=== PATIENT | male | born 1935 | race Caucasian/White ===

== ENCOUNTER → 2017-10-01 16:22 | Outpatient (CLI) | payer MEDICARE, OTHER, SELFPAY | PROVIDERS: Visit Provider Otolaryngology Otolaryngology/Facial Plastic Surgery | DX: J02.9 Acute pharyngitis, unspecified (principal); J32.9 Chronic sinusitis, unspecified | CPT/HCPCS: 87070; 87077 ==

== ENCOUNTER 2018-02-19 06:05 | Inpatient (IN) | payer MEDICARE, OTHER, SELFPAY ==
[2018-02-19] VITALS (20 sets, daily range): BP systolic 105–169; BP diastolic 53–83; PULSE 76–93; RESP 14–32; TEMP 36.4–37.1; O2SAT 83–100; BMI 28.1
--- NOTE | 2018-02-19 06:34 | CT_ITS ---
STUDY: CT ABDOMEN AND PELVIS WITHOUT CONTRAST REASON FOR EXAM: Male, 82 years old. Constipation, abdominal pain RADIATION DOSAGE (If Supplied By Facility): CTDIvol = ( 8.45 ) mGy, DLP = ( 479.49 ) mGycm TECHNIQUE: Transaxial 2.5 mm images were obtained from the dome of the diaphragm to the symphysis pubis without oral contrast, and without intravenous contrast. Sagittal and coronal images were reconstructed. This examination is limited for the evaluation of gastrointestinal, solid organs and vascular structures due to the lack of intravenous and oral contrast. Individualized dose optimization techniques were used for this CT. COMPARISON: None. FINDINGS: Interstitial lung disease with hyperinflation-bulla formation, with additional atelectatic changes and probable scarring. There is coronary artery calcification. Esophageal wall is probably thickened. Esophageal diameter of 1.5 cm. Normal liver. There is trace perihepatic fluid and stranding. Significant distention of the gallbladder containing at least 3 gallbladder calculi one of which appears to be in the gallbladder neck/cystic duct measuring 0.8 cm. Gallbladder wall is indistinct, appears thickened, there is pericholecystic stranding and probable fluid. Small pericholecystic lymph node 0.7 cm. The common bile duct is decompressed without choledocholithiasis. There is no intrahepatic biliary ductal dilatation. Normal spleen. There is atrophy of the pancreas. Small duodenal diverticulum. Normal bilateral adrenal glands. Moderate left greater than right renal involution with cortical thinning, perirenal stranding, focal renal cortical thinning likely scarring, left parapelvic cyst. There is no obstructive uropathy, obstructive renal or ureteral calculi. Left retroaortic renal vein is a vascular variant. Normal visualized stomach. Normal small intestine. Moderate amount of retained fecal material in the ascending colon without obstruction. Otherwise normal colon. The appendix is visualized and appears normal. There is atherosclerosis of the abdominal aorta, greater branches and pelvic arteries without aneurysm or leak. Normal inferior vena cava. Normal retroperitoneum. Normal urinary bladder. Normal visualized prostate gland. There is a penile pump in the right groin through the right inguinal canal with an incompletely imaged penile implant. There is trace pelvic fluid. Normal abdominal wall. There are diffuse degenerative changes of the visualized lumbar spine. Grade 2 anterolisthesis L5 on S1. CT/Abdomen/Pelvis without Cont IMPRESSION: Acute cholecystitis with cystic duct obstruction. Pericholecystic inflammatory changes as above. Arteriosclerosis. Renal involution and scarring. Arteriosclerosis. Moderate amount of retained fecal material in the ascending colon, however no significant retained fecal material otherwise noted. Indeterminate esophageal wall, possible thickening. This can be further assessed if needed with endoscopy. Electronically Signed: Lisa Christy MD at 7:15 EST , Service support ,
--- NOTE | 2018-02-19 06:40 | RAD_ITS ---
STUDY: X-RAY CHEST REASON FOR EXAM: Male, 82 years old. Shortness of breath for 2 days. TECHNIQUE: Single AP portable view of the chest. COMPARISON: CT of the chest dated January 17, 2016. FINDINGS: The lungs are underexpanded with crowding of the bronchovascular markings and obscuration of the lung bases. There is mild elevation of the right hemidiaphragm. Appears to be right basilar and left basilar subsegmental atelectasis. There is no demonstrated pleural abnormality. Normal size heart. Normal mediastinum and tatiana. Normal visualized pulmonary arteries. Normal visualized aortic arch and descending thoracic aorta. Normal visualized thoracic spine. Patient has had previous right-sided shoulder surgery where there are humeral bone anchors. There is no demonstrated abnormality of the visualized soft tissue structures of the upper abdomen. RAD/Chest 1 View (Portable) IMPRESSION: Expiratory chest radiograph with bilateral basilar subsegmental atelectasis. Electronically Signed: Jennifer Salas MD at 7:23 EST , Service support ,
--- NOTE | 2018-02-19 06:40 | EKG12_ITS ---
Test Reason : AB PAIN Blood Pressure : / mmHG Vent. Rate : 081 BPM Atrial Rate : 081 BPM P-R Int : 160 ms QRS Dur : 092 ms QT Int : 372 ms P-R-T Axes : 065 029 021 degrees QTc Int : 432 ms Normal sinus rhythm Normal ECG Confirmed by BRENDA STEVENSON, SALONI ([id number]), index editor RAY MULTANI ([id number]) on 02/21/2018 2:35:45 PM Referred By: TG Confirmed By:SALONI GUTIERREZ MD
[2018-02-19] MEDS: 0.9% Normal Saline 1,000 ML 1000 ML IV (06:42)
[2018-02-19] MEDS: Ondansetron 4 MG/2 ML Vial IV (06:42)
[2018-02-19 06:44] LABS: Absolute Lymphocyte Count 0.53 X10^3/ul (0.83-4.51); Absolute Neutrophil Count 11.5 X10^3/uL (2.0-7.7); Basophil# 0.01 X10^3/uL; Basophil% 0.1 % (0-1); Differential Indicated SCAN CRITERIA MET; Hematocrit 45.7 % (40-54); Hemoglobin 16.2 g/dl (13.0-16.5); Lymphocyte # 0.53 X10^3/ul (4.0); Mean Corp Hgb Conc 35.4 g/gl (32-36); Mean Corpuscular Hgb 31.6 pg (27.0-32.0); Mean Corpuscular Volume 89.3 fL (80-94); Mean Platelet Vol. 10.5 fl (6.2-12.0); Monocyte# 1.26 X10^3/uL; Monocyte% 9.5 % (0-10); Neutrophil # 11.51 X10^3/uL (2.7-7.7); Neutrophil % 86.2 % (47-70); POSITIVE COUNT NO; POSITIVE DIFFERENTIAL YES; POSITIVE MORPHOLOGY NO; Platelet Count 207 K/mm3 (150-450); RBC Distribution Width CV 12.6 % (11.6-14.6); RBC Distribution Width SD 40.6 fl (35.1-43.9); Red Blood Count 5.12 M/mm3 (4.6-6.2); White Blood Count 13.3 K/mm3 (4.4-11.0)
[2018-02-19 06:55] LABS: ALB/GLOB Ratio 1.1 RATIO (0.9-2.4); AST(SGOT) 19 U/L (15-37); Alanine Aminotransfer ALT/SGPT 22 U/L (16-61); Albumin, Serum 3.7 g/dL (3.2-5.0); Alkaline Phosphatase 62 U/L (45-117); Anion Gap 11 (5-15); BUN 15 mg/dL (7-18); BUN/Creat Ratio 13.2 RATIO (10-20); Calcium,Total 8.9 mg/dL (8.5-10.1); Chloride 95 mmol/L (98-107); Creatinine, Serum 1.14 mg/dL (0.70-1.30); EST Glomerular Filtration Rate 66 mL/min (>60); Est Glom Filt Rate - Afr Amer 79 mL/min (>60); Estimated Creatinine Clearance 48.32 ml/min; Globulin 3.5 g/dL (2.2-4.2); Glucose 181 mg/dL (74-106); Lipase 53 U/L (73-393); Potassium 4.1 mmol/L (3.5-5.1); Protein, Total 7.2 g/dL (6.4-8.2); Sodium Level 134 mmol/L (136-145)
--- NOTE | 2018-02-19 07:00 | ED.VISSUMM ---
- ER Visit Summary Date of Service: 02/19/18 Chief Complaint: I have a bowel blockage. History of Present Illness: The patient is a 82 M who presents with abdominal pain. It initially began yesterday. It is diffuse and nonfocal. It is only mild currently but is moderate at its worst intensity. He complains of feeling distended. He has had nausea and vomiting and is been unable to tolerate anything by mouth. He states he cannot even tolerate liquids. He has had no bowel movement in 3 days and is no longer having any flatus. No prior history of small bowel obstruction. History of abdominal surgeries. Patient reports normal colonoscopy 2 years ago. Physical Examination: Afebrile vitals notable for pulse ox of 88% on room air otherwise normal No distress Heart regular rate and rhythm Lungs are clear Abdomen soft with mild nonfocal tenderness, he is distended, normal bowel sounds Alert Test Results: Laboratory studies and CT of the abdomen and pelvis have been ordered and are currently pending. Emergency Department Course and Treatment: Patient did not need any analgesics here as he is comfortable unless he moves. He was given IV fluids and antiemetics. He was signed out to the oncoming physician for reevaluation and follow-up on results and final disposition Treatment Plan: [] Disposition: [] Impression: [] This note was generated with [employer] dictation software. It may contain incorrect words, spelling, and punctuation that were not noted in review of the chart prior to signing ED Disposition - Plan for ED Patient: Chief Complaint: Abd Pain Referrals: Xavier Rodriguez MD [Primary Care Provider] -
--- NOTE | 2018-02-19 07:44 | ED.RN ---
PT STATES HE CHECKED HIS BGL 2 DAYS AGO AND DOES NOT REMEMBER THE RESULT.
--- NOTE | 2018-02-19 07:53 | HP.PCM_ITS ---
Problem List (1) Cholecystitis, acute with cholelithiasis Status: Acute Qualifiers: Cholelithiasis location: gallbladder Biliary obstruction: without biliary obstruction Qualified Code(s): K80.00 - Calculus of gallbladder with acute cholecystitis without obstruction History of Present Illness Date of Admission: 02/19/18 The patient is a 82 year old M presented to the emergency room overnight. I was contacted early this morning. The patient has been ill for a day and a half. He developed upper abdominal pain. That occurred on Saturday evening. All day yesterday he was in pain with nausea and vomiting. He did not notify his primary care physician. He presented to the [facility] emergency room in the middle the night. Evaluation demonstrated white cell count of 13.3 with a hemoglobin 16.2 and hematocrit 45.7 and platelet count 207,000. 86% neutrophils. BUN is 15 and creatinine 1.14. His liver panel was normal. Lipase is 53. Abdominal pelvic CT scan was obtained showing diffuse thickening of the gallbladder wall gallstones pericholecystic fluid fecal retention in the ascending colon all consistent with acute cholecystitis secondary to cholelithiasis. Common bile duct felt to be normal. The patient claims that he is been having sweats and chills. He has been intolerant of any type of liquid. He has never had a pain like this before. Was a previous long-term cigarette smoker. At least a pack per day. He quit smoking 30 years ago. His presentation to the emergency room he is afebrile. Blood pressure is 144/68. BMI is 28. Past Medical History Past Medical History (Chronic Problems): Chronic Problems Benign prostatic hypertrophy (Chronic) Hypertension (Chronic) Type 2 diabetes mellitus (Chronic) Allergies erythromycin base Allergy (Verified 02/19/18 06:11) Other Home Medications: Ambulatory Orders Medication Instructions Recorded Cholecalciferol (VIT D3) [Vitamin 1,000 unit PO DAILY 01/17/16 D3] Finasteride 5 mg PO DAILY 01/17/16 Gabapentin 300 mg PO QHS 01/17/16 Glimepiride [Amaryl] 1 tab PO DAILY 01/17/16 Lisinopril 5 mg PO DAILY 01/17/16 Multivitamin [Daily Multiple 1 each PO DAILY 01/17/16 Vitamin] Omeprazole 20 mg PO DAILY 01/17/16 Pravastatin [Pravachol] 80 mg PO QHS 01/17/16 Ubidecarenone/Vit E Acetate [Co 1 each PO DAILY 01/17/16 Q-10 100 mg Softgel] Surgical History: - - tonsils out,peronie disease surgery. Right rotator cuff surgery. Excision of subcutaneous lipomas Smoking Status: Former smoker - *Family History Paternal History Items: - - lung disease age 66 Sibling History Items: - - prostate cancer Review of Systems Constitutional: Reports: Anorexia, Chills, Fever, Night Sweats Eyes: Denies: Blurred vision HEENT: Denies: Difficulty Swallowing Cardiovascular: Denies: Chest Pain, Claudication, Chest Pressure Respiratory: Denies: Cough Gastrointestinal: Reports: Abdominal Pain, Nausea, Vomiting Genitourinary: Denies: Dysuria Skin: Reports: Dryness Psychiatric: Denies: Anxiety Endocrine: Denies: Change in Body Habitus VTE Information - Inpt Only VTE Present on Admission: No Patient Problems: Active and Suspected Problems Cholecystitis, acute with cholelithiasis (Acute) - Physical Exam General: Alert, Oriented x3, Cooperative HEENT: Atraumatic Oral: Moist Mucosa Neck: Supple, Negative Carotid Bruits Lungs: Clear to auscultation Cardiovascular: Regular rate, Regular Rhythm Abdomen: Bowel Sounds Not Present, Distended, Tender Extremities: No Calf Tenderness Skin: No rashes Lymphatic: No Cervical, Supraclavicular, or Inguinal Adenopathy Neurological: Cranial nerves II-XII grossly intact Psych/Mental Status: Normal Affect Vital Signs Temp Pulse Resp BP Pulse Ox 97.6 F L 93 16 144/68 H 92 02/19/18 07:32 02/19/18 07:32 02/19/18 07:32 02/19/18 07:32 02/19/18 07:32 Oxygen Delivery Method Ambu-Bag Weight: 179 lb 10.828 oz Body Mass Index (BMI) 28.1 Laboratory Tests Past 24 Hrs 02/19/18 02/19/18 06:21 06:21 WBC 13.3 H RBC 5.12 Hgb 16.2 Hct 45.7 MCV 89.3 MCH 31.6 MCHC 35.4 RDW 12.6 RDW Differential 40.6 Plt Count 207 MPV 10.5 Immature Gran % (Auto) 0.200 Neut % (Auto) 86.2 H Lymph % (Auto) 4.0 L Crittenden % (Auto) 9.5 Eos % (Auto) 0.0 Baso % (Auto) 0.1 Absolute Neuts (auto) 11.5 H Absolute Lymphs (auto) 0.53 L Total Counted Not Reportable Sodium 134 L Potassium 4.1 Chloride 95 L Carbon Dioxide 28.0 Anion Gap 11 BUN 15 Creatinine 1.14 Estim Creat Clear Calc 48.32 Est GFR (MDRD) Af Amer 79 Est GFR (MDRD) Non-Af 66 BUN/Creatinine Ratio 13.2 Glucose 181 H Calcium 8.9 Total Bilirubin 1.00 AST 19 ALT 22 Alkaline Phosphatase 62 Total Protein 7.2 Albumin 3.7 Globulin 3.5 Albumin/Globulin Ratio 1.1 Lipase 53 L Assessment/Plan All Active Problems Cholecystitis, acute with cholelithiasis (Acute) Dehydration (Acute) Syncope (Acute) Findings are consistent with acute cholecystitis cholelithiasis. Clinically he already has an ileus related to this. I am recommending to him laparoscopic cholecystectomy selective cholangiography and in detail I discussed the technique, benefits, risks, alternatives. I believe proceeding directly would be in his best interest. We will provide IV hydration. We will start therapeutic IV antibiotics. We will try to add him on to the surgery schedule in a timely fashion. He is aware that there are no guarantees of success. He has had an opportunity to ask and have questions answered. He requests that we proceed with definitive management. Irwin Potts M.D., F.A.C.S.
--- NOTE | 2018-02-19 07:57 | DCINST_ITS ---
Discharge Diet: Light diet - advance as tolerated - if you have questions about your diet instructions, please talk to you doctor. Discharge Activity: May Not Drive - for 1 week or while taking narcotic pain medicine. May shower in (days): 1 Lifting Restrictions: 10 pounds Call your doctor if your incision/area has: Continuous Slow Oozing, Sudden Increased Bleeding, Increased Pain/ Swelling, Increased Redness, Foul Smelling Discharge Call your doctor if you observe: Fever of 101 or Higher Suture Line Care: Avoid Pulling/Pushing, Avoid Pinching/Bending Additional Dressing/Incision Instructions:: Change or remove dressing in 4 days. Leave steri-strips in place for 1 week. Allergies/Adverse Reactions: Allergies erythromycin base Allergy (Verified 02/19/18 06:11) Other Medications to take at Discharge Cholecalciferol (VIT D3) [Vitamin D3] 1,000 unit PO DAILY 01/17/16 Finasteride 5 mg PO DAILY 01/17/16 Gabapentin 300 mg PO QHS 01/17/16 Glimepiride [Amaryl] 1 tab PO DAILY 01/17/16 Lisinopril 5 mg PO DAILY 01/17/16 Multivitamin [Daily Multiple Vitamin] 1 each PO DAILY 01/17/16 Omeprazole 20 mg PO DAILY 01/17/16 Pravastatin [Pravachol] 80 mg PO QHS 01/17/16 Ubidecarenone/Vit E Acetate [Co Q-10 100 mg Softgel] 1 each PO DAILY 01/17/16 Primary Care Physician: Xavier Rodriguez MD [Primary Care Provider] - Test Results: Test results from this visit will be discussed in further detail at your follow- up appointment, if applicable. Please Follow Up With: Irwin Potts MD - [phone] When: Call to make an appointment to be seen in about 10 days.
--- NOTE | 2018-02-19 08:10 | ED.RN ---
OR TECH IN ED.
--- NOTE | 2018-02-19 09:00 | RAD_ITS ---
STUDY: INTRAOPERATIVE CHOLANGIOGRAM. REASON FOR EXAM: Male, 82 years old. Laparoscopic cholecystectomy. FLUOROSCOPY TIME (if supplied): (50.6 seconds.) minutes/seconds TECHNIQUE: Intraoperative localizing was performed by the surgeon. A cine loop was submitted. COMPARISON: None. FINDINGS: The common bile duct is not dilated. No intraluminal filling defect is seen. There is free flow of contrast into the duodenum. RAD/Cholangiogram/ O R,Initial IMPRESSION: Unremarkable intraoperative cholangiogram. Electronically Signed: Abraham Turner MD at 14:56 EST Tel [phone], Service support ,
--- NOTE | 2018-02-19 09:15 | GALL_PTH ---
PATIENT: ЕКАТЕРИНА CASTELLON LOC: [facility]3 U#:[id number] AGE/SX: 82/M ROOM: WA315 RE02/20/[address]: Dr. Irwin Potts MD : [id number] BED: 1 DIS: 02/21/2018 SPEC #: [id number] RECD: 02/19/18 15:27 STATUS: FALLON HERNANDEZConrado #: [id number] TRAVIS: 02/19/18 09:[address]: Irwin Potts DEPT: SURGICAL PATHOLOGY RECD BY: Jeremias Shin ENTERED: 02/20/18 08:11 SP TYPE: RANDALL CEE DR: Dr. 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 SJ:bisi 02/21/18 MICROSCOPIC DESCRIPTION Slides are reviewed. GROSS DESCRIPTION Received is one container labeled with the patient's name and designated gallbladder. The specimen consists of a gallbladder measuring 12 cm in length and up to 5 cm in diameter. The serosa is congested and hemorrhagic. The external surface is pink-shah, smooth and glistening for the most part. Focally it is granular, hemorrhagic and contains cautery artifact. The gallbladder contains hemorrhagic fluid and multiple blood clots and black, irregular to multifaceted stones measuring 0.6 to 1.3 cm in greatest dimension and in aggregate 2 x 1 x 1 cm. The mucosa is congested, hemorrhagic and ulcerated. The gallbladder wall measures up to 0.5 cm in thickness. Sections of the gallbladder wall reveal focally congested and hemorrhagic cut surfaces. Company Controller sections from the gallbladder and the cystic duct are submitted in one cassette. / AARON:bisi 02/20/18 TC:2 CPT: 40666
--- NOTE | 2018-02-19 10:50 | RAD_ITS ---
STUDY: INTRAOPERATIVE CHOLANGIOGRAM. REASON FOR EXAM: Male, 82 years old. Laparoscopic cholecystectomy. FLUOROSCOPY TIME (if supplied): (0:33) minutes/seconds TECHNIQUE: A repeat intraoperative cholangiogram was performed following injection of glucagon. COMPARISON: Comparison is made with prior examination done earlier in the day. FINDINGS: The common bile duct is unremarkable. No intraluminal filling defect is seen. There is free flow of contrast into the duodenum. RAD/Cholangiogram O.R./Subsequent IMPRESSION: Unremarkable intraoperative cholangiogram. Electronically Signed: Abraham Turner MD at 14:58 EST Tel [phone], Service support ,
[2018-02-19] MEDS: Bupivacaine Mpf 0.5% 30 ML VIAL (11:20)
--- NOTE | 2018-02-19 11:21 | PCM.OPRPT ---
Problem List (1) Cholecystitis, acute with cholelithiasis Status: Acute Qualifiers: Cholelithiasis location: gallbladder Biliary obstruction: without biliary obstruction Qualified Code(s): K80.00 - Calculus of gallbladder with acute cholecystitis without obstruction Report of Operation Date of Procedure: 02/19/18 Pre-Operative Diagnosis: Acute cholecystitis cholelithiasis with ileus Post-Operative Diagnosis: Same Surgery/Procedure Performed:: Laparoscopic cholecystectomy with intraoperative cholangiography Description of Surgical Findings:: Timeout and informed consent was obtained. 82-year-old gentleman was taken to the operating room with a diagnosis of acute cholecystitis cholelithiasis. He was therapeutic treated with Zosyn in the emergency room. He already had an established ileus. He underwent general endotracheal intubation anesthesia. The abdomen sterilely prepped and draped. 0.5% Marcaine was used as a local anesthetic. Throughout the procedure total 30 cc was used. Skin sites were pre-anesthetized. A vertical infraumbilical incision was created holding sutures of 0 Vicryl placed there is no discharge is seen to drop test performed the abdomen was insufflated with CO2 to a pressure of 10 mmHg pressure. Told me trocar inserted. Timeout scope inserted. The superficial structures inspected no abnormalities however the omentum and transverse colon was densely adherent overlying a markedly distended gallbladder. Final trochars in place the epigastric mid abdomen right upper quadrant. Slightly under the case and additional family trocar was placed in the left upper quadrant. The omentum was bluntly dissected free from the gallbladder. Gallbladder was markedly distended and pregangrenous. The trocar was used to aspirate and decompress the gallbladder. There were marked a number of omental adhesions to the gallbladder. I had added additional left upper quadrant port and under place a liver retractor in order to hold the distended transverse colon down. Aqua dissection blunt dissection was used to identify the infundibular area of the gallbladder however finding a critical view was not possible. After tedious adequate resection there was significant amount of blood loss at least 200 cc I elected to do a dome down approach. I was able to use a hook cautery and released the abdomen the gallbladder then carefully dissected free from the liver bed. Hemostasis was achieved with electrocautery throughout vomiting now achieved this I was able to dissect the gallbladder down to the portal area was able to identify the proper hepatic duct, bile duct. Eyes able to see the anterior and posterior cystic artery these were secured with hemoclips prior to transecting them. I was left with only the infundibular the gallbladder and the cystic duct. The lock clip was placed and incision made in cystic duct clench Loco catheter inserted and fluoroscopically controlled plane scans were obtained. This suggested the possibility of a distal common bile duct defect stone and so the patient received a milligram of glucagon I flushed with saline and then I repeated the echo angiogram and there was appear to be free flow into the small bowel. I remove the clench Loco in 2 extra-large hemoclips were placed on the cystic duct area. These nicely across that area it was intact. The gallbladder was placed in a retrieval bag. The liver bed was inspected further electrocautery was used for hemostasis and then 2 pieces of fibrillar were placed in the liver bed to further assist with hemostasis. A 15 round EUGENE drain was shortened the length exited through the right upper quadrant port site and placed to the liver bed area it was secured to skin with 3-0 nylon. It was now the gallbladder was exited the umbilicus because of the marked enlargement the fascia and skin had to be enlarged. It was then safely removed trochars were removed the abdomen was allowed to deflate his CO2. The fascia at the umbilicus approximated with a [id number] of 0 Vicryl in a running 0 Vicryl. Good fascial closure was achieved. Skin edges approximated up to 4 Monocryl subdermal stitches. Steri-Strips Telfa and OpSite dressings applied. Sponge and instrument and needle counts were reported the surgeon were correct. Specimens gallbladder. Drains #15 EUGENE. Blood loss 400 cc. Irwin Potts M.D., F.A.C.S. Type of Anesthesia:: General Anesthesiologist: [place]ano Mendieta
--- NOTE | 2018-02-19 12:00 | RAD_ITS ---
STUDY: X-RAY CHEST REASON FOR EXAM: Male, 82 years old. Postoperative chest pain TECHNIQUE: Single AP portable view of the chest. COMPARISON: 02/19/2018 FINDINGS: EKG leads overlie the chest. Lungs are underexpanded, with bibasilar atelectasis. There is no demonstrated pleural abnormality. Normal size heart. Normal mediastinum and tatiana. Normal visualized pulmonary arteries. Normal visualized aortic arch and descending thoracic aorta. Normal visualized thoracic spine. Normal visualized ribs, clavicles, and shoulders. There is no demonstrated abnormality of the visualized soft tissue structures of the upper abdomen. RAD/Chest 1 View (Portable) IMPRESSION: Underexpanded lungs with bibasilar atelectasis. Electronically Signed: Kevin Tucker MD at 12:44 EST , Service support ,
[2018-02-19 12:15] LABS: Bedside Glucose 213 mg/dL (70-110)
--- NOTE | 2018-02-19 12:21 | NURSING ---
DR Dannie HSIEH PALPATED PT ABDOMEN, VIEWED PT VS. THIS NURSE EXPRESSED CONCERN RE: INCREASE IN ABDOMINAL FIRMNESS AND DISTENTION SINCE PT ARRIVAL TO PACU, ALONG WITH DYSPNEA AND C/O CHEST PRESSURE PER PT. WILL CONTINUE TO MONITOR.
--- NOTE | 2018-02-19 12:37 | EKG12_ITS ---
Test Reason : CP Blood Pressure : / mmHG Vent. Rate : 083 BPM Atrial Rate : 083 BPM P-R Int : 154 ms QRS Dur : 090 ms QT Int : 376 ms P-R-T Axes : 046 000 008 degrees QTc Int : 441 ms Normal sinus rhythm Normal ECG When compared with ECG of 19-FEB-2018 06:43, MANUAL COMPARISON REQUIRED, DATA IS UNCONFIRMED Confirmed by BRENDA STEVENSON, SALONI ([id number]), order editor RAY MULTANI ([id number]) on 02/21/2018 3:19:04 PM Referred By: МАРИЯ Confirmed By:SALONI GUTIERREZ MD
--- NOTE | 2018-02-19 12:38 | NURSING ---
DR Dannie HSIEH EXAMINED PT ABD, PT CALMER NOW, VS STABLE, C/O PAIN, BUT STATES PAIN MORE TOLERABLE.
[2018-02-19 12:40] LABS: Absolute Lymphocyte Count 0.77 X10^3/ul (0.83-4.51); Absolute Neutrophil Count 9.5 X10^3/uL (2.0-7.7); Basophil# 0.01 X10^3/uL; Basophil% 0.1 % (0-1); Eosinophil# 0.01 X10^3/uL; Eosinophils% 0.1 % (0-5); Hematocrit 48.9 % (40-54); Hemoglobin 16.7 g/dl (13.0-16.5); Lymphocyte # 0.77 X10^3/ul (4.0); Mean Corp Hgb Conc 34.2 g/gl (32-36); Mean Corpuscular Hgb 31.4 pg (27.0-32.0); Mean Corpuscular Volume 91.9 fL (80-94); Mean Platelet Vol. 10.7 fl (6.2-12.0); Monocyte# 0.69 X10^3/uL; Monocyte% 6.3 % (0-10); Neutrophil # 9.49 X10^3/uL (2.7-7.7); Neutrophil % 86.3 % (47-70); Platelet Count 197 K/mm3 (150-450); RBC Distribution Width CV 12.8 % (11.6-14.6); RBC Distribution Width SD 42.2 fl (35.1-43.9); Red Blood Count 5.32 M/mm3 (4.6-6.2)
[2018-02-19 12:41] LABS: POSITIVE COUNT NO; POSITIVE DIFFERENTIAL NO; POSITIVE MORPHOLOGY NO
[2018-02-19 13:01] LABS: Allen Test POS; Base Excess -1 mmol/L (-2 to +2); Bicarbonate 24.7 mmol/L (22-26); Blood Gas Specimen Type ART; O2 Delivery Device Nasal Can; PO2 56 mmHG (75-100); SITE R Radial; SO2 86 % (95-99); Time Given 1253; Total Carbon Dioxide 26 mmol/L; pH 7.33 (7.35-7.45)
[2018-02-19 13:05] LABS: BUN 15 mg/dL (7-18); Creatinine, Serum 1.08 mg/dL (0.70-1.30); Glucose 212 mg/dL (74-106)
[2018-02-19 13:06] LABS: AST(SGOT) 58 U/L (15-37); Alanine Aminotransfer ALT/SGPT 48 U/L (16-61); Albumin, Serum 3.5 g/dL (3.2-5.0); Alkaline Phosphatase 62 U/L (45-117); Anion Gap 8 (5-15); BUN/Creat Ratio 13.9 RATIO (10-20); Calcium,Total 8.5 mg/dL (8.5-10.1); Chloride 98 mmol/L (98-107); EST Glomerular Filtration Rate 70 mL/min (>60); Est Glom Filt Rate - Afr Amer 84 mL/min (>60); Globulin 3.5 g/dL (2.2-4.2); Potassium 4.4 mmol/L (3.5-5.1); Sodium Level 133 mmol/L (136-145)
[2018-02-19] MEDS: Morphine 2 MG/ML Syringe IV (14:49)
[2018-02-19] MEDS: Lactated Ringers 1,000 ML 70 ML IV ×2 (14:51→22:29)
[2018-02-19] MEDS: Piperacil/Tazobactam 3.375 GM/50 ML ML IV ×2 (15:13→21:28)
[2018-02-19 23:05] LABS: Bedside Glucose 166 mg/dL (70-110)
[2018-02-20] VITALS (7 sets, daily range): BP systolic 127–160; BP diastolic 70–76; PULSE 83–89; RESP 18–20; TEMP 36.7–37.1; O2SAT 92–95
[2018-02-20] MEDS: Piperacil/Tazobactam 3.375 GM/50 ML ML IV ×3 (05:40→22:21)
[2018-02-20 05:54] LABS: Absolute Lymphocyte Count 0.43 X10^3/ul (0.83-4.51); Absolute Neutrophil Count 6.6 X10^3/uL (2.0-7.7); Basophil# 0.02 X10^3/uL; Basophil% 0.3 % (0-1); Lymphocyte # 0.43 X10^3/ul (4.0); Lymphocyte % 5.4 % (19-41); Mean Corp Hgb Conc 34.2 g/gl (32-36); Mean Corpuscular Hgb 31.3 pg (27.0-32.0); Mean Corpuscular Volume 91.6 fL (80-94); Mean Platelet Vol. 10.3 fl (6.2-12.0); Monocyte% 10.1 % (0-10); Neutrophil # 6.64 X10^3/uL (2.7-7.7); Neutrophil % 84.1 % (47-70); Platelet Count 163 K/mm3 (150-450); RBC Distribution Width CV 12.7 % (11.6-14.6); RBC Distribution Width SD 42.1 fl (35.1-43.9); Red Blood Count 4.15 M/mm3 (4.6-6.2); White Blood Count 7.9 K/mm3 (4.4-11.0)
[2018-02-20 05:56] LABS: Differential Indicated SCAN CRITERIA MET; POSITIVE COUNT NO; POSITIVE DIFFERENTIAL YES; POSITIVE MORPHOLOGY NO
--- NOTE | 2018-02-20 06:05 | PCM.PN.SRG ---
Patient Problems: Active and Suspected Problems Cholecystitis, acute with cholelithiasis (Acute) Subjective: Improved over yesterday - Physical Exam Lungs: - - diminished in bases Cardiovascular: - Abdomen: Bowel Sounds Not Present, Distended, Tender Vital Signs Temp Pulse Resp BP Pulse Ox 98.6 F 85 20 H 141/73 H 92 02/20/18 03:49 02/20/18 03:49 02/20/18 03:56 02/20/18 03:49 02/20/18 03:56 Oxygen Flow Rate (L/min) 3 Oxygen Delivery Method Nasal Cannula Weight: 179 lb 10.828 oz Body Mass Index (BMI) 28.1 Finger Stick Blood Glucose 213 Intake and Output for Last 24 Hours 02/18/18 02/19/18 02/20/18 23:59 23:59 23:59 Intake Total 1654 / 1654 913 / 913 Output Total 165 / 165 973 / 973 Balance 1489 / 1489 -60 / -60 Laboratory Tests Past 24 Hrs 02/19/18 02/19/18 02/19/18 06:21 06:21 12:05 WBC 13.3 H RBC 5.12 Hgb 16.2 Hct 45.7 MCV 89.3 MCH 31.6 MCHC 35.4 RDW 12.6 RDW Differential 40.6 Plt Count 207 MPV 10.5 Immature Gran % (Auto) 0.200 Neut % (Auto) 86.2 H Lymph % (Auto) 4.0 L [place] % (Auto) 9.5 Eos % (Auto) 0.0 Baso % (Auto) 0.1 Absolute Neuts (auto) 11.5 H Absolute Lymphs (auto) 0.53 L Total Counted Not Reportable Specimen Type Sample Site pH Bicarbonate Actual POC Total CO2 Base Excess O2 Saturation ABG pCO2 ABG pO2 Aditya Test O2 Delivery Device Liter Flow Blood Gas Notified Whom Blood Gas Notified Time Sodium 134 L Potassium 4.1 Chloride 95 L Carbon Dioxide 28.0 Anion Gap 11 BUN 15 Creatinine 1.14 Estim Creat Clear Calc 48.32 Est GFR (MDRD) Af Amer 79 Est GFR (MDRD) Non-Af 66 BUN/Creatinine Ratio 13.2 Glucose 181 H Calcium 8.9 Total Bilirubin 1.00 AST 19 ALT 22 Alkaline Phosphatase 62 Troponin I < 0.015 Total Protein 7.2 Albumin 3.7 Globulin 3.5 Albumin/Globulin Ratio 1.1 Lipase 53 L 02/19/18 02/19/18 02/19/18 12:05 12:30 12:53 WBC 11.0 RBC 5.32 Hgb 16.7 H Hct 48.9 MCV 91.9 MCH 31.4 MCHC 34.2 RDW 12.8 RDW Differential 42.2 Plt Count 197 MPV 10.7 Immature Gran % (Auto) 0.200 Neut % (Auto) 86.3 H Lymph % (Auto) 7.0 L [place] % (Auto) 6.3 Eos % (Auto) 0.1 Baso % (Auto) 0.1 Absolute Neuts (auto) 9.5 H Absolute Lymphs (auto) 0.77 L Total Counted Not Reportable Specimen Type ART Sample Site R Radial pH 7.33 L Bicarbonate Actual 24.7 POC Total CO2 26 Base Excess -1 O2 Saturation 86 L ABG pCO2 47.0 H ABG pO2 56 L Aditya Test POS O2 Delivery Device Nasal Can Liter Flow 6.0 Blood Gas Notified Whom OTHER Blood Gas Notified Time 1253 Sodium 133 L Potassium 4.4 Chloride 98 Carbon Dioxide 27.0 Anion Gap 8 BUN 15 Creatinine 1.08 Estim Creat Clear Calc 51.00 Est GFR (MDRD) Af Amer 84 Est GFR (MDRD) Non-Af 70 BUN/Creatinine Ratio 13.9 Glucose 212 H Calcium 8.5 Total Bilirubin 1.90 H AST 58 H ALT 48 Alkaline Phosphatase 62 Troponin I Total Protein 7.0 Albumin 3.5 Globulin 3.5 Albumin/Globulin Ratio 1.0 Lipase 02/20/18 02/20/18 05:32 05:32 WBC 7.9 RBC 4.15 L Hgb 13.0 Hct 38.0 L MCV 91.6 MCH 31.3 MCHC 34.2 RDW 12.7 RDW Differential 42.1 Plt Count 163 MPV 10.3 Immature Gran % (Auto) 0.100 Neut % (Auto) 84.1 H Lymph % (Auto) 5.4 L [place] % (Auto) 10.1 H Eos % (Auto) 0.0 Baso % (Auto) 0.3 Absolute Neuts (auto) 6.6 Absolute Lymphs (auto) 0.43 L Total Counted Pending Specimen Type Sample Site pH Bicarbonate Actual POC Total CO2 Base Excess O2 Saturation ABG pCO2 ABG pO2 Aditya Test O2 Delivery Device Liter Flow Blood Gas Notified Whom Blood Gas Notified Time Sodium Pending Potassium Pending Chloride Pending Carbon Dioxide Pending Anion Gap Pending BUN Pending Creatinine Pending Estim Creat Clear Calc Est GFR (MDRD) Af Amer Pending Est GFR (MDRD) Non-Af Pending BUN/Creatinine Ratio Pending Glucose Pending Calcium Pending Total Bilirubin AST ALT Alkaline Phosphatase Troponin I Total Protein Albumin Globulin Albumin/Globulin Ratio Lipase POC Glucose 02/19/18 02/19/18 22:32 12:11 POC Glucose 166 H 213 H Medical Necessity - Tobacco Use Smoking Status: Former smoker Assessment/Plan All Active Problems Cholecystitis, acute with cholelithiasis (Acute) Dehydration (Acute) Syncope (Acute) Allow sips Mobilize to chair and ambulate Remove EUGENE
[2018-02-20 06:07] LABS: Anion Gap 5 (5-15); BUN 17 mg/dL (7-18); BUN/Creat Ratio 15.5 RATIO (10-20); Calcium,Total 7.7 mg/dL (8.5-10.1); Chloride 100 mmol/L (98-107); EST Glomerular Filtration Rate 68 mL/min (>60); Est Glom Filt Rate - Afr Amer 83 mL/min (>60); Estimated Creatinine Clearance 50.08 ml/min; Glucose 153 mg/dL (74-106); Potassium 3.9 mmol/L (3.5-5.1); Sodium Level 135 mmol/L (136-145)
[2018-02-20] MEDS: Morphine 2 MG/ML Syringe IV ×3 (09:12→16:40)
[2018-02-20] MEDS: Lactated Ringers 1,000 ML 50 ML IV (09:15)
--- NOTE | 2018-02-20 10:45 | CASEMGMT ---
RN PAVAN Face to Face with patient for initial transition planning/care coordination assessment. RN CM introduced self and role at [facility]. Patient lying in bed, alert and oriented. Patient willing to participate in assessment and is able to answer all questions appropriately. Care providers, pharmacy, and demographics verified. Patient wishes to discharge home, denies need for home health at this time. Patient states he has no further needs or concerns at this time. CM to follow for discharge planning needs that may arise. PCP: Michael Specialists: None Preferred Pharmacy: [facility] Insurance: [facility] Prescription Benefit: Yes Living Will/HPOA: None LNOK: Living Arrangements: Patient lives with in 1 story home. Transportation: Self DME/HHC: Denies need for DME or HHC Disposition Plan: Patient to discharge home with family support and follow-up plans in place. Carole CHIANG, RN, CM
[2018-02-20 11:05] LABS: Bedside Glucose 141 mg/dL (70-110)
[2018-02-20] MEDS: Enoxaparin 40 MG/0.4 ML Syringe SC (13:29)
[2018-02-20] MEDS: Ondansetron 4 MG/2 ML Vial IV (13:33)
--- NOTE | 2018-02-20 15:34 | NURSING ---
This RN taking over care at this time
[2018-02-20] MEDS: 0.9% NaCl Peripheral Flush Adult/Peds IV (16:40)
--- NOTE | 2018-02-20 17:09 | PCM.PN.BLA ---
Progress Note Pt has not had flatus. C/O nausea. He has been OOB twice today. Pain still with movement EUGENE removed earlier PE: distended abdomen, occ BS Will hold at sip/chips Will try to avoid an NGT Pulmonary is slowly better
[2018-02-20] MEDS: Lisinopril 5 MG Tablet PO (22:53)
[2018-02-21] VITALS (7 sets, daily range): BP systolic 140–152; BP diastolic 60–88; PULSE 70–84; RESP 18–20; TEMP 36.4–36.9; O2SAT 89–94
[2018-02-21] MEDS: Enoxaparin 40 MG/0.4 ML Syringe SC (05:52)
[2018-02-21] MEDS: Piperacil/Tazobactam 3.375 GM/50 ML ML IV (05:52)
--- NOTE | 2018-02-21 06:21 | PCM.PN.SRG ---
Patient Problems: Active and Suspected Problems Cholecystitis, acute with cholelithiasis (Acute) Subjective: Pt has had flatus but no stool Nausea is much better Pain is much better - Physical Exam General: Alert, Oriented x3, Cooperative, No apparent distress Lungs: Clear to auscultation Abdomen: Soft, Hypoactive Bowel Sounds, - - less tender Vital Signs Temp Pulse Resp BP Pulse Ox 97.9 F 84 20 H 151/73 H 94 02/21/18 04:10 02/21/18 04:10 02/21/18 04:21 02/21/18 04:10 02/21/18 04:21 Oxygen Flow Rate (L/min) 2 Oxygen Delivery Method Nasal Cannula Weight: 179 lb 10.828 oz Body Mass Index (BMI) 28.1 Finger Stick Blood Glucose 213 Intake and Output for Last 24 Hours 02/19/18 02/20/18 02/21/18 23:59 23:59 23:59 Intake Total 1654 / 1654 1792 / 1792 798 / 798 Output Total 165 / 165 2373 / 2373 250 / 250 Balance 1489 / 1489 -581 / -581 548 / 548 Laboratory Tests Past 24 Hrs 02/20/18 02/21/18 05:32 05:36 WBC Pending RBC Pending Hgb Pending Hct Pending MCV Pending MCH Pending MCHC Pending RDW Pending RDW Differential Pending Plt Count Pending Neut % (Auto) Pending Absolute Neuts (auto) Pending Total Counted Not Reportable Pending POC Glucose 02/20/18 10:59 POC Glucose 141 H Medical Necessity - Tobacco Use Smoking Status: Former smoker Assessment/Plan All Active Problems Cholecystitis, acute with cholelithiasis (Acute) Dehydration (Acute) Syncope (Acute) Start fulls Continue to mobilize [facility] today
[2018-02-21 06:35] LABS: Absolute Lymphocyte Count 0.27 X10^3/ul (0.83-4.51); Basophil# 0.01 X10^3/uL; Basophil% 0.1 % (0-1); Eosinophil# 0.01 X10^3/uL; Eosinophils% 0.1 % (0-5); Hematocrit 37.4 % (40-54); Hemoglobin 12.7 g/dl (13.0-16.5); Lymphocyte # 0.27 X10^3/ul (4.0); Lymphocyte % 3.4 % (19-41); Mean Corpuscular Hgb 31.3 pg (27.0-32.0); Mean Corpuscular Volume 92.1 fL (80-94); Mean Platelet Vol. 10.7 fl (6.2-12.0); Monocyte% 7.6 % (0-10); Neutrophil # 6.98 X10^3/uL (2.7-7.7); Neutrophil % 88.7 % (47-70); Platelet Count 169 K/mm3 (150-450); RBC Distribution Width CV 12.6 % (11.6-14.6); RBC Distribution Width SD 41.5 fl (35.1-43.9); Red Blood Count 4.06 M/mm3 (4.6-6.2); White Blood Count 7.9 K/mm3 (4.4-11.0)
[2018-02-21 06:51] LABS: Differential Indicated SCAN CRITERIA MET; POSITIVE COUNT NO; POSITIVE DIFFERENTIAL YES; POSITIVE MORPHOLOGY NO
[2018-02-21] MEDS: Lactulose 20 GM/30 ML UDC PO (07:01)
[2018-02-21] MEDS: Furosemide 20 MG/2 ML VIAL IV (07:01)
[2018-02-21] MEDS: Bisacodyl 5 MG Tablet 20 MG PO (07:03)
[2018-02-21] MEDS: Ondansetron 4 MG/2 ML Vial IV (09:24)
[2018-02-21] MEDS: Lisinopril 5 MG Tablet PO (09:38)
[2018-02-21] MEDS: Finasteride 5 MG Tablet PO (09:38)
[2018-02-21] MEDS: Pantoprazole Sodium 20 MG Tablet PO (09:40)
== END 2018-02-21 15:55 | disposition home or self-care (01) | DRG 418 ==
LOC: ED 07:27 → SDC 07:47 → ACINP 07:50 → AC 08:29 → MS3 02-20 07:17
PROVIDERS: Anesthesiology; Admitting Provider Surgery; Emergency Provider Emergency Medicine; Family Provider Internal Medicine; PCP Internal Medicine; Visit Provider Surgery
PROC: (CPT 47610; principal; 2018-02-19 09:05)
DX: K80.00 Calculus of gallbladder with acute cholecystitis without obstruction (principal); K56.7 Ileus, unspecified; K82.8 Other specified diseases of gallbladder; N40.0 Benign prostatic hyperplasia without lower urinary tract symptoms; I10 Essential (primary) hypertension; E11.9 Type 2 diabetes mellitus without complications; Z79.899 Other long term (current) drug therapy; Z79.84 Long term (current) use of oral hypoglycemic drugs; Z87.891 Personal history of nicotine dependence
CPT/HCPCS: 36415; 36600; 71045; 74176; 74300; 74301; 76000; 80048; 80053; 82803; 82962; 83690; 84484; 85025; 88304; 93005; 97802; 99282; J7030; J7040; J7120; A4216; J1610; J1940; J2405

== ENCOUNTER → 2018-09-01 15:40 | Outpatient (CLI) | payer MEDICARE, OTHER, SELFPAY ==
[2018-02-19 16:41] VITALS: BMI 28.1
== END ==
PROVIDERS: Family Provider Internal Medicine; PCP Internal Medicine; Referring Provider Otolaryngology Otolaryngology/Facial Plastic Surgery; Visit Provider Otolaryngology Otolaryngology/Facial Plastic Surgery
DX: J02.9 Acute pharyngitis, unspecified (principal)
CPT/HCPCS: 87070

== ENCOUNTER 2020-04-15 14:39 | Outpatient (RCR) | payer MEDICARE, OTHER, SELFPAY ==
[2018-02-19 16:41] VITALS: BMI 28.1
== END 2020-04-15 23:59 ==
LOC: IMMUN 14:39
PROVIDERS: PCP Internal Medicine; Referring Provider Family Medicine; Visit Provider Family Medicine
DX: Z23 Encounter for immunization (principal)
CPT/HCPCS: 0011A; 0012A; 91301

== ENCOUNTER 2020-08-06 07:09 | Emergency (ER) | payer MEDICARE, OTHER, SELFPAY ==
[2018-02-19 16:41] VITALS: BMI 28.1
[2020-08-06 07:10] VITALS: BP 143/69; PULSE 114; RESP 16; TEMP 37.1; O2SAT 91; BMI 26.9
[2020-08-06 07:19] VITALS: BP 143/69; PULSE 114; RESP 16; TEMP 37.1; O2SAT 91
--- NOTE | 2020-08-06 07:23 | RAD_ITS ---
EXAM: XR CHEST, 1 VIEW CLINICAL INDICATION: Fever. TECHNIQUE: Frontal view of the chest. This report was created using Coin report generation technology. COMPARISON: 02/19/2018. FINDINGS: LUNGS AND PLEURAL SPACES: Pulmonary hypoinflation. Bibasilar subsegmental atelectases. No suspicious infiltrates. No pneumothorax. No effusion. HEART: Unremarkable. Cardiac silhouette not enlarged. MEDIASTINUM: Central airways and mediastinal contour are unremarkable. BONES/JOINTS: Unremarkable. SOFT TISSUES: Unremarkable. RAD/Chest 1 View (Portable) IMPRESSION: 1. No acute findings in the chest. 2. Bibasilar subsegmental atelectases. 3. No significant interval change when compared to 02/19/2018. Electronically Signed: Andre Moore MD at 8:36 EDT , Service support ,
--- NOTE | 2020-08-06 07:23 | EKG12_ITS ---
Test Reason : Blood Pressure : / mmHG Vent. Rate : 101 BPM Atrial Rate : 101 BPM P-R Int : 158 ms QRS Dur : 090 ms QT Int : 336 ms P-R-T Axes : 033 014 036 degrees QTc Int : 435 ms Sinus tachycardia Otherwise normal ECG Confirmed by BRENDA STEVENSON, SALONI ([id number]), digital editor HALEIGH ROME ([id number]) on 08/09/2020 9:37:34 AM Referred By: Confirmed By:SALONI GUTIERREZ MD
--- NOTE | 2020-08-06 07:27 | EX.ED.DYSGE1 ---
HPI History of Present Illness Chief Complaint: Fever Informant: patient Narrative Narrative: 85-year-old male presenting with fever. Patient states that he started having chills last night. He took his temperature and it was 103. He took Tylenol with improvement of his fever. He complains of rhinorrhea. He denies cough. He complains of epigastric and left lower quadrant pain. He denies vomiting or diarrhea. Denies urinary complaints. He has had his Covid vaccine. Recent Illness/Hospitalization: No PFSH PFSH Medical History Benign prostatic hypertrophy Cholecystitis, acute with cholelithiasis Dehydration Hypertension Syncope Type 2 diabetes mellitus Home Medications cholecalciferol (vitamin D3) 1,000 unit PO DAILY 01/17/16 [History Last Taken 01/17/16] coenzyme [id number] E 1 ea PO DAILY 01/17/16 [History Last Taken 01/17/16] finasteride 5 mg PO DAILY 01/17/16 [History Last Taken 01/16/16] gabapentin 300 mg PO QHS 01/17/16 [History Last Taken 01/16/16] glimepiride 1 tab PO DAILY 01/17/16 [History Last Taken 01/16/16] lisinopril 5 mg PO DAILY 01/17/16 [History Last Taken 01/17/16] multivitamin 1 ea PO DAILY 01/17/16 [History Last Taken 01/17/16] omeprazole 20 mg PO DAILY 01/17/16 [History Last Taken 01/16/16] pravastatin 80 mg PO QHS 01/17/16 [History Last Taken 01/16/16] Allergy/AdvReac Type Severity Reaction Status Date / Time erythromycin base Allergy Other Verified 08/06/20 07:10 Surgical History S/P laparoscopic cholecystectomy (~02/19/18) Social History Smoking Status: Former smoker ROS ROS ED Constitutional Constitutional ED: Reports chills and fever(s) Eyes Eyes: Denies change in vision ENT ENT ED: Reports rhinorrhea; Denies sore throat Cardiovascular Cardiovascular: Denies chest pain or palpitations Respiratory/Chest Respiratory/Chest: Denies cough or dyspnea Gastrointestinal Gastrointestinal: Reports abdominal pain; Denies diarrhea, nausea or vomiting Genitourinary Genitourinary ED: Denies dysuria Musculoskeletal Musculoskeletal: Denies myalgias Integumentary Denies rash Neurologic Neurologic: Denies headache(s) Psychiatric Psychiatric: Denies suicidal thoughts EXAM Physical Exam Const Vital Signs: 08/06/20 07:10 08/06/20 07:19 08/06/20 08:58 Temperature 98.7 F 98.7 F Temperature Source Oral Oral Pulse Rate 114 H 114 H 91 Respiratory Rate 16 16 30 H Respiratory Pattern Normal Blood Pressure 143/69 H 143/69 H 127/74 H Blood Pressure Mean 93 93 91 Pulse Ox 91 91 93 Oxygen Delivery Method Room Air Room Air Room Air Positive well nourished and well developed General Appearance ED: well developed HEENT Reports normocephalic and head/scalp atraumatic Eyes PERRL and EOMs intact bilaterally Neck supple General: Negative for tenderness Chest Wall inspection of chest normal Resp normal respiratory effort and clear to auscultation bilaterally Cardio regular rate and regular rhythm GI non-distended Palpation: soft and tender epigastric and LLQ; Negative for guarding or rebound tenderness present no CVA tenderness Extremity normal to inspection Neuro oriented x3 Sensorium / Orientation: alert Psych mental status grossly normal MDM MDM MDM Narrative Medical decision making narrative: Covid is negative. Due to elevated D-dimer, CTA of chest was obtained which shows no evidence of PE or dissection. CT abdomen pelvis is unremarkable. On reevaluation, patient is resting comfortably. He continues to be afebrile. He will follow-up with his primary care physician. Advised return to ED if worsening complaints. Lab Data Attestation: I reviewed the patient's lab results. Labs: Laboratory Results - last 24 hr 08/06/20 08/06/20 08/06/20 07:55 07:55 07:55 WBC 5.7 RBC 4.59 L Hgb 14.7 Hct 41.8 MCV 91.1 MCH 32.0 MCHC 35.2 RDW Std Deviation 39.6 RDW Coeff of Zane 11.9 Plt Count 175 MPV 10.1 Immature Gran % (Auto) 0.400 Neut % (Auto) 85.3 H Lymph % (Auto) 5.8 L [place] % (Auto) 8.1 Eos % (Auto) 0.2 Baso % (Auto) 0.2 Absolute Neuts (auto) 4.8 Absolute Lymphs (auto) 0.33 L Nucleated RBC % 0 Differential Comment S D-Dimer Quant (PE/DVT) 1.12 H* Sodium 138 Potassium 3.7 Chloride 103 Carbon Dioxide 25.0 Anion Gap 10 BUN 20 H Creatinine 1.45 H Estim Creat Clear Calc 36.09 Est GFR (MDRD) Af Amer 60 Est GFR (MDRD) Non-Af 49 L BUN/Creatinine Ratio 13.8 Glucose 166 H Lactic Acid Calcium 9.0 Total Bilirubin 1.00 AST 37 ALT 128 H Alkaline Phosphatase 149 H Troponin I < 0.015 Total Protein 6.6 Albumin 3.4 Globulin 3.2 Albumin/Globulin Ratio 1.1 Lipase 55 L Urine Color Urine Clarity Urine pH Ur Specific [place] Urine Protein Urine Glucose (UA) Urine Ketones Urine Occult Blood Urine Nitrite Urine Bilirubin Urine Urobilinogen Ur Leukocyte Esterase Urine RBC Urine WBC Ur Squamous Epith Cells Urine Bacteria Urine Mucus 08/06/20 08/06/20 07:55 08:43 WBC RBC Hgb Hct MCV MCH MCHC RDW Std Deviation RDW Coeff of Zane Plt Count MPV Immature Gran % (Auto) Neut % (Auto) Lymph % (Auto) [place] % (Auto) Eos % (Auto) Baso % (Auto) Absolute Neuts (auto) Absolute Lymphs (auto) Nucleated RBC % Differential Comment D-Dimer Quant (PE/DVT) Sodium Potassium Chloride Carbon Dioxide Anion Gap BUN Creatinine Estim Creat Clear Calc Est GFR (MDRD) Af Amer Est GFR (MDRD) Non-Af BUN/Creatinine Ratio Glucose Lactic Acid 1.4 Calcium Total Bilirubin AST ALT Alkaline Phosphatase Troponin I Total Protein Albumin Globulin Albumin/Globulin Ratio Lipase Urine Color Yellow Urine Clarity Clear Urine pH 6.5 Ur Specific [place] 1.010 Urine Protein Negative Urine Glucose (UA) Normal Urine Ketones Negative Urine Occult Blood Negative Urine Nitrite Negative Urine Bilirubin Negative Urine Urobilinogen Normal Ur Leukocyte Esterase Negative Urine RBC 0 SEEN Urine WBC 0 SEEN Ur Squamous Epith Cells 0 SEEN Urine Bacteria 0 SEEN Urine Mucus 0 SEEN Radiography Chest X-Ray - ED: 1 View, Read by ED Physician and Read by Radiologist Diagnostic Testing: Radiology Impression Chest X-Ray 08/06/20 07:23 IMPRESSION: 1. No acute findings in the chest. 2. Bibasilar subsegmental atelectases. 3. No significant interval change when compared to 02/19/2018. Electronically Signed: Andre Moore MD at 8:36 EDT , Service support , Abdomen/Pelvis CT 08/06/20 08:36 IMPRESSION: 1. Interval cholecystectomy. 2. No suspicious mass or acute abnormality in the abdomen and pelvis. 3. 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 4. Thin-walled cysts in the medial lung bases and bibasilar subsegmental atelectasis and scarring are unchanged. Electronically Signed: Andre Moore MD at 10:23 EDT , Service support , Chest CTA 08/06/20 08:36 IMPRESSION: 1. No CTA evidence of pulmonary thromboemboli, thoracic aortic aneurysm or dissection. 2. Thin-walled cysts in the lung bases and bibasilar subsegmental atelectases. 3. No significant interval change when compared to compared to 01/17/2016. Electronically Signed: Andre Moore MD at 10:11 EDT , Service support , EKG Initial EKG: Attestation: I personally reviewed and interpreted this EKG as follows: Interpretation: Sinus Tachycardia Discharge Plan Triage Chief Complaint: Fever ED Provider: Hailey Reynolds Dx/Rx/DC Orders Clinical Impression: Acute febrile illness Instructions: ED FUO Adult Prescriptions: No Action pravastatin 80 MG tablet 80 mg PO QHS RF: 0 gabapentin 300 MG capsule 300 mg PO QHS RF: 0 omeprazole 20 MG capsule,delayed release(DR/EC) 20 mg PO DAILY RF: 0 lisinopril 5 MG tablet 5 mg PO DAILY RF: 0 finasteride 5 MG tablet 5 mg PO DAILY RF: 0 multivitamin 1 EACH tablet 1 ea PO DAILY RF: 0 glimepiride 1 MG tablet 1 tab PO DAILY RF: 0 cholecalciferol (vitamin D3) 1,000 UNIT tablet 1,000 unit PO DAILY RF: 0 coenzyme [id number] E 1 EACH capsule 1 ea PO DAILY RF: 0 Primary Care Provider: Xavier Rodriguez Referrals: Xavier Rodriguez MD [Primary Care Provider] - Disposition Disposition: Home, self care
[2020-08-06 08:18] LABS: Absolute Lymphocyte Count 0.33 X10^3/uL (0.83-4.51); Absolute Neutrophil Count 4.8 X10^3/uL (2.0-7.7); Basophil# 0.01 X10^3/uL; Basophil% 0.2 % (0-1); Eosinophil# 0.01 X10^3/uL; Eosinophils% 0.2 % (0-5); Hematocrit 41.8 % (40-54); Hemoglobin 14.7 g/dL (13.0-16.5); Lymphocyte # 0.33 X10^3/ul (0.83-4.51); Lymphocyte % 5.8 % (19-41); Mean Corp Hgb Conc 35.2 g/dL (32-36); Mean Corpuscular Volume 91.1 fL (80-94); Mean Platelet Vol. 10.1 fl (6.2-12.0); Monocyte# 0.46 X10^3/uL; Monocyte% 8.1 % (0-10); NRBC Flagged by Analyzer 0 % (0-5); Neutrophil # 4.83 X10^3/uL (2.7-7.7); Neutrophil % 85.3 % (47-70); POSITIVE DIFFERENTIAL YES; Platelet Count 175 K/mm3 (150-450); RBC Distribution Width CV 11.9 % (11.6-14.6); RBC Distribution Width SD 39.6 fl (35.1-43.9); Red Blood Count 4.59 M/mm3 (4.6-6.2); White Blood Count 5.7 K/mm3 (4.4-11.0)
[2020-08-06 08:19] LABS: Differential Indicated SCAN CRITERIA MET
[2020-08-06 08:31] LABS: D-Dimer Quantitative (DVT/PE) 1.12 FEU/ug/m (0.27-0.49)
--- NOTE | 2020-08-06 08:34 | NURSING ---
CALL FROM LAB , D-DIMER 1.12, DR VELIZ MADE AWARE.
[2020-08-06 08:36] LABS: ALB/GLOB Ratio 1.1 RATIO (0.9-2.4); AST(SGOT) 37 U/L (15-37); Alanine Aminotransfer ALT/SGPT 128 U/L (16-61); Albumin, Serum 3.4 g/dL (3.2-5.0); Alkaline Phosphatase 149 U/L (45-117); Anion Gap 10 (5-15); BUN 20 mg/dL (7-18); BUN/Creat Ratio 13.8 RATIO (10-20); Chloride 103 mmol/L (98-107); Creatinine, Serum 1.45 mg/dL (0.70-1.30); EST Glomerular Filtration Rate 49 mL/min (>60); Est Glom Filt Rate - Afr Amer 60 mL/min (>60); Estimated Creatinine Clearance 36.09 ml/min; Globulin 3.2 g/dL (2.2-4.2); Glucose 166 mg/dL (74-106); Lipase 55 U/L (73-393); Potassium 3.7 mmol/L (3.5-5.1); Protein, Total 6.6 g/dL (6.4-8.2); Sodium Level 138 mmol/L (136-145)
--- NOTE | 2020-08-06 08:36 | CT_ITS ---
EXAM: CT ANGIOGRAPHY CHEST WITHOUT AND WITH INTRAVENOUS CONTRAST CLINICAL INDICATION: elevated d dimer TECHNIQUE: Helically acquired angiography images were obtained of the chest without and with intravenous contrast. This CT exam was performed using one or more of the following dose reduction techniques: automated exposure control, adjustment of the mA and/or kV according to patient size, and/or use of iterative reconstruction technique. This report was created using Viximo report generation technology. MIP reconstructed images were created and reviewed. CONTRAST: IV 100mL Isovue-370 COMPARISON: CTA chest 01/17/2016. FINDINGS: PULMONARY ARTERIES: Unremarkable. Normal in caliber. No evidence of pulmonary embolism. AORTA: Unremarkable. Normal in caliber. No evidence of dissection. GREAT VESSELS OF AORTIC ARCH: Unremarkable. Normal in caliber. No evidence of dissection. LUNGS AND PLEURAL SPACES: Thin-walled cysts in the lung bases and bibasilar subsegmental atelectases. No mass. No pleural effusion or thickening. No pneumothorax. HEART: Unremarkable. Heart size is normal. No pericardial effusion. No signs of right heart strain. MEDIASTINUM: Unremarkable. No mediastinal or hilar adenopathy. Esophagus is unremarkable. No hiatal hernia. THYROID: Unremarkable. No thyroid lesions. BONES/JOINTS: Unremarkable. No suspicious lytic or blastic abnormality. CT/CTA Chest W/WO Contrast IMPRESSION: 1. No CTA evidence of pulmonary thromboemboli, thoracic aortic aneurysm or dissection. 2. Thin-walled cysts in the lung bases and bibasilar subsegmental atelectases. 3. No significant interval change when compared to compared to 01/17/2016. Electronically Signed: Andre Moore MD at 10:11 EDT , Service support ,
--- NOTE | 2020-08-06 08:36 | CT_ITS ---
EXAM: CT ABDOMEN AND PELVIS WITH INTRAVENOUS CONTRAST CLINICAL INDICATION: LLQ pain TECHNIQUE: Helically acquired images were obtained of the abdomen and pelvis with intravenous contrast. This CT exam was performed using one or more of the following dose reduction techniques: automated exposure control, adjustment of the mA and/or kV according to patient size, and/or use of iterative reconstruction technique. This report was created using [employer]ik report generation technology. CONTRAST: IV 100mL Isovue-370 COMPARISON: CT abdomen and pelvis without contrast 02/19/2018. FINDINGS: LOWER THORAX: Thin-walled cysts in the medial lung bases with bibasilar subsegmental atelectases and scarring. No cardiomegaly. No significant pericardial effusion. ABDOMEN: LIVER: Unremarkable. Homogeneous. No focal mass. GALLBLADDER AND BILE DUCTS: Postsurgical absence of the gallbladder. No intra- or extrahepatic biliary ductal dilation. PANCREAS: Unremarkable. No focal cystic or solid mass. SPLEEN: Unremarkable. Normal size without focal cystic or solid mass. ADRENALS: Unremarkable. No nodules. KIDNEYS AND URETERS: Unremarkable. Normal renal size and position. No hydronephrosis. STOMACH AND BOWEL: Unremarkable. No stomach or bowel distention. No focal inflammatory change. PELVIS: APPENDIX: Normal. BLADDER: Unremarkable. REPRODUCTIVE: Intact penile prosthesis. ABDOMEN and PELVIS: INTRAPERITONEAL SPACE: Unremarkable. No ascites or other fluid collection. No free air. 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 No suspicious lytic or blastic abnormality. SOFT TISSUES: Unremarkable. No discrete abdominal or pelvic wall hernia. VASCULATURE: Unremarkable. Abdominal aorta is non-dilated. LYMPH NODES: Unremarkable. No enlarged lymph nodes. CT/Abdomen/Pelvis W IV Cont ONLY IMPRESSION: 1. Interval cholecystectomy. 2. No suspicious mass or acute abnormality in the abdomen and pelvis. 3. 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 4. Thin-walled cysts in the medial lung bases and bibasilar subsegmental atelectasis and scarring are unchanged. Electronically Signed: Andre Moore MD at 10:23 EDT , Service support ,
[2020-08-06 08:45] LABS: Differential Comment S; Lactic Acid 1.4 mmol/L (0.4-1.9)
[2020-08-06 08:48] LABS: Bacteria 0 SEEN /hpf (None Seen); Mucous, Urine 0 SEEN /hpf (<or=2+); Red Blood Cells-Urine 0 SEEN /hpf (0-5); Squamous Epithelial Cells - UA 0 SEEN /hpf (0-5); White Blood Cells 0 SEEN /hpf (0-5)
[2020-08-06 08:49] LABS: Color, Urine Yellow (Yellow); Glucose, Dipstick Normal (Normal); Ketone-Dipstick Negative (Negative); Leukocyte Esterase-Dipstick Negative /ul (Negative); Nitrite-Dipstick Negative (Negative); Occult Blood-Urine Negative /ul (Negative); Protein-Dipstick Negative (Negative); Urine Bilirubin Dipstick Negative (Negative); Urine Clarity Clear (Clear); Urine Urobilinogen Normal (Normal); Urine pH 6.5 (5.0 - 8.0)
[2020-08-06 08:58] VITALS: BP 127/74; PULSE 91; RESP 30; O2SAT 93
[2020-08-06] MEDS: 0.9% Normal Saline 1,000 ML 999 ML IV (08:58)
[2020-08-06 11:02] VITALS: BP 124/76
== END 2020-08-06 11:08 | disposition home or self-care (01) ==
PROVIDERS: Emergency Provider Emergency Medicine; PCP Internal Medicine
DX: R50.9 Fever, unspecified (principal); J34.89 Other specified disorders of nose and nasal sinuses; R10.32 Left lower quadrant pain; Z87.891 Personal history of nicotine dependence
CPT/HCPCS: 36415; 71045; 71275; 74177; 80053; 81001; 83605; 83690; 84484; 85025; 85379; 87040; 87426; 93005; 99284; J7030; Q9967; A4216

== ENCOUNTER → 2020-11-24 13:28 | Outpatient (CLI) | payer MEDICARE, OTHER, SELFPAY ==
--- NOTE | 2020-11-24 13:30 | EKG12_ITS ---
Test Reason : PREOP Blood Pressure : / mmHG Vent. Rate : 083 BPM Atrial Rate : 083 BPM P-R Int : 154 ms QRS Dur : 092 ms QT Int : 362 ms P-R-T Axes : 049 016 041 degrees QTc Int : 425 ms Normal sinus rhythm Normal ECG Confirmed by REYNOLD STEVENSON, NAVEEN ([id number]), make up editor HALEIGH ROME ([id number]) on 11/28/2020 12:59:55 PM Referred By: Roberto Salas Confirmed By:NAVEEN FLAHERTY MD
--- NOTE | 2020-11-24 13:30 | RAD_ITS ---
STUDY: X-RAY CHEST REASON FOR EXAM: Male, 85 years old. PRE OP TECHNIQUE: 2 views COMPARISON: 08/06/2020 FINDINGS: Cardiomediastinal silhouette is unremarkable. Costophrenic angles are sharp. Linear scars are seen in the lung bases. Lungs are otherwise clear. The trachea is midline. There is no pneumothorax. Multilevel thoracic spondylosis is noted. RAD/Chest PA and Lateral IMPRESSION: No acute cardiopulmonary process. Electronically Signed: Vasyl Dodson MD at 15:22 EDT Tel , Service support ,
== END ==
PROVIDERS: PCP Internal Medicine; Referring Provider Orthopaedic Surgery; Visit Provider Orthopaedic Surgery
DX: Z01.818 Encounter for other preprocedural examination (principal)
CPT/HCPCS: 71046; 93005

== ENCOUNTER 2021-03-19 01:39 | Emergency (ER) | payer MEDICARE, OTHER, SELFPAY ==
[2021-03-19 01:40] VITALS: BP 126/66; PULSE 65; RESP 16; TEMP 36.8; O2SAT 96; BMI 26.7
[2021-03-19 01:43] VITALS: BP 126/66; PULSE 65; RESP 16; TEMP 36.8; O2SAT 96
--- NOTE | 2021-03-19 02:00 | CT_ITS ---
STUDY: CT ABDOMEN AND PELVIS WITHOUT CONTRAST REASON FOR EXAM: Male, 85 years old patient with left-sided flank pain. RADIATION DOSAGE (If Supplied By Facility): CTDIvol = ( 7.63 ) mGy, DLP = ( 440.27 ) mGycm TECHNIQUE: Transaxial images were obtained from the dome of the diaphragm to the symphysis pubis without oral contrast, and without intravenous contrast. Sagittal and coronal images were reconstructed. Individualized dose optimization techniques were used for this CT. COMPARISON: CT of the abdomen and pelvis dated 08/06/2020. FINDINGS: There is bilateral lower lobe subsegmental atelectasis. The visualized portions of the heart are within normal limits. Normal liver. There is non-visualization of the gallbladder, which may be secondary to either contraction or a prior cholecystectomy. Normal spleen. Normal pancreas. Normal bilateral adrenal glands. Normal right kidney. Normal left kidney. Normal visualized stomach. There is no obvious dilated bowel, ascites or pneumoperitoneum. The small bowel has a grossly normal appearance. There is stool visible throughout the colon. The appendix is visualized and appears normal. There is diffuse atherosclerotic calcification of the abdominal aorta and iliac arteries, without a demonstrated aneurysm. Normal inferior vena cava. Normal retroperitoneum. Normal urinary bladder. Normal visualized prostate gland. A reservoir is visible right pelvis for the penile prosthesis. Normal abdominal wall. 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 The bones are osteopenic. There are multilevel degenerative changes of the thoracic and lumbar spine. There are bridging osteophytes anterior to the sacroiliac joints. CT/Abdomen/Pelvis without Cont IMPRESSION: 1. No CT evidence of acute intra-abdominal disease. 2. Bilateral basilar subsegmental atelectasis and/or pulmonary fibrosis. Electronically Signed: Jennifer Salas MD at 3:27 EST , Service support ,
[2021-03-19 02:20] LABS: Absolute Lymphocyte Count 1.11 X10^3/uL (0.83-4.51); Basophil# 0.02 X10^3/uL; Basophil% 0.3 % (0-1); Eosinophil# 0.25 X10^3/uL; Eosinophils% 4.2 % (0-5); Hematocrit 39.1 % (40-54); Hemoglobin 13.7 g/dL (13.0-16.5); Lymphocyte # 1.11 X10^3/ul (0.83-4.51); Lymphocyte % 18.5 % (19-41); Mean Corpuscular Volume 91.4 fL (80-94); Mean Platelet Vol. 8.8 fl (6.2-12.0); Monocyte# 0.64 X10^3/uL; Monocyte% 10.7 % (0-10); NRBC Flagged by Analyzer 0 % (0-5); Neutrophil # 3.95 X10^3/uL (2.7-7.7); Platelet Count 212 K/mm3 (150-450); RBC Distribution Width CV 11.9 % (11.6-14.6); RBC Distribution Width SD 39.6 fl (35.1-43.9); Red Blood Count 4.28 M/mm3 (4.6-6.2)
[2021-03-19 02:39] LABS: Anion Gap 7 (5-15); BUN 23 mg/dL (7-18); BUN/Creat Ratio 16.9 RATIO (10-20); Calcium,Total 9.4 mg/dL (8.5-10.1); Chloride 99 mmol/L (98-107); Creatinine, Serum 1.36 mg/dL (0.70-1.30); EST Glomerular Filtration Rate 53 mL/min (>60); Est Glom Filt Rate - Afr Amer 64 mL/min (>60); Estimated Creatinine Clearance 38.48 ml/min; Glucose 129 mg/dL (74-106); Potassium 4.1 mmol/L (3.5-5.1); Sodium Level 134 mmol/L (136-145)
--- NOTE | 2021-03-19 03:11 | EX.ED.DYSGE1 ---
HPI History of Present Illness Chief Complaint: Complaint Informant: patient Onset/Context/Timing Onset: Today Current Severity: Mild Maximum Severity: Moderate Narrative Narrative: Patient presents with decreased urination and left flank pain. Patient states he drank some water before bed and usually urinates a certain amount. He is only able to go a small amount and then his urine stream abruptly stopped. He developed pain in the left lower quadrant that wraps slightly to the left flank. That pain seems to be improved currently. He does have a history of prior kidney stone. [facility] Medical History Benign prostatic hypertrophy Cholecystitis, acute with cholelithiasis Dehydration Hypertension Syncope Type 2 diabetes mellitus Home Medications cholecalciferol (vitamin D3) 1,000 unit PO DAILY 01/17/16 [History Last Taken 01/17/16] coenzyme [id number] E 1 ea PO DAILY 01/17/16 [History Last Taken 01/17/16] finasteride 5 mg PO DAILY 01/17/16 [History Last Taken 01/16/16] gabapentin 300 mg PO QHS 01/17/16 [History Last Taken 01/16/16] glimepiride 1 tab PO DAILY 01/17/16 [History Last Taken 01/16/16] lisinopril 5 mg PO DAILY 01/17/16 [History Last Taken 01/17/16] multivitamin 1 ea PO DAILY 01/17/16 [History Last Taken 01/17/16] omeprazole 20 mg PO DAILY 01/17/16 [History Last Taken 01/16/16] pravastatin 80 mg PO QHS 01/17/16 [History Last Taken 01/16/16] tamsulosin 4 mg PO DAILY 03/19/21 [History Last Taken Unknown] Allergy/AdvReac Type Severity Reaction Status Date / Time erythromycin base Allergy Other Verified 08/06/20 07:10 Surgical History S/P laparoscopic cholecystectomy (~02/19/18) Social History Smoking Status: Former smoker ROS ROS ED Constitutional Constitutional ED: Denies chills or fever(s) Eyes Eyes: Denies change in vision ENT ENT ED: Denies sore throat Cardiovascular Cardiovascular: Denies chest pain Respiratory/Chest Respiratory/Chest: Denies cough or dyspnea Gastrointestinal Gastrointestinal: Reports abdominal pain; Denies diarrhea, nausea or vomiting Genitourinary Genitourinary ED: Reports other Details: Decreased urine output ; Denies dysuria Musculoskeletal Musculoskeletal: Denies back pain Integumentary Denies rash Neurologic Neurologic: Denies headache(s) or weakness Allergic/Immunologic Allergic/Immunologic ED: Denies urticaria EXAM Physical Exam Const Vital Signs: 03/19/21 01:40 03/19/21 01:43 Temperature 98.2 F 98.2 F Temperature Source Oral Oral Pulse Rate 65 65 Respiratory Rate 16 16 Blood Pressure 126/66 H 126/66 H Blood Pressure Mean 86 86 Pulse Ox 96 96 Oxygen Delivery Method Room Air Room Air Positive well nourished and well developed General Appearance ED: well developed HEENT Reports moist mucous membranes Eyes PERRL and EOMs intact bilaterally Neck supple Chest Wall inspection of chest normal and palpation of chest normal Resp normal respiratory effort and clear to auscultation bilaterally Cardio regular rate and regular rhythm GI non-tender Auscultation: hypoactive bowel sounds Palpation: soft Extremity normal to inspection Neuro oriented x3 Sensorium / Orientation: alert Psych mental status grossly normal Skin no rashes or lesions noted MDM MDM MDM Narrative Medical decision making narrative: Lab work, urinalysis, CT flank obtained. Lab Data Attestation: I reviewed the patient's lab results. Labs: Laboratory Results - last 24 hr 03/19/21 03/19/21 03/19/21 02:15 02:15 03:45 WBC 6.0 RBC 4.28 L Hgb 13.7 Hct 39.1 L MCV 91.4 MCH 32.0 MCHC 35.0 RDW Std Deviation 39.6 RDW Coeff of Zane 11.9 Plt Count 212 MPV 8.8 Immature Gran % (Auto) 0.300 Neut % (Auto) 66.0 Lymph % (Auto) 18.5 L [place] % (Auto) 10.7 H Eos % (Auto) 4.2 Baso % (Auto) 0.3 Absolute Neuts (auto) 4.0 Absolute Lymphs (auto) 1.11 Nucleated RBC % 0 Sodium 134 L Potassium 4.1 Chloride 99 Carbon Dioxide 28.0 Anion Gap 7 BUN 23 H Creatinine 1.36 H Estim Creat Clear Calc 38.48 Est GFR (MDRD) Af Amer 64 Est GFR (MDRD) Non-Af 53 L BUN/Creatinine Ratio 16.9 Glucose 129 H Calcium 9.4 Urine Color Yellow Urine Clarity Clear Urine pH 7.0 Ur Specific [employer] 1.010 Urine Protein Negative Urine Glucose (UA) Normal Urine Ketones Negative Urine Occult Blood Negative Urine Nitrite Negative Urine Bilirubin Negative Urine Urobilinogen Normal Ur Leukocyte Esterase Negative Radiography Diagnostic Testing: Clinical Impression(s) from Imaging Studies Abdomen/Pelvis CT 03/19/21 02:00 IMPRESSION: 1. No CT evidence of acute intra-abdominal disease. 2. Bilateral basilar subsegmental atelectasis and/or pulmonary fibrosis. Electronically Signed: Jennifer Salas MD at 3:27 EST , Service support , Treatment and Re-Evaluation Comments:: Lab work unremarkable. BUN and creatinine slightly improved when compared to prior labs. Patient was able to urinate here and feels that he was able to empty his bladder. Urinalysis reveals no sign of infection. CT scan reveals no acute abnormalities. Test results discussed with patient and at bedside. He has an area that he feels is infected on his penile shaft. There is very minimal erythema with no lesion. He will be given bacitracin ointment to place on the leg area twice a day. I do not feel he needs oral antibiotics. Discharge Plan Triage Chief Complaint: Complaint ED Provider: Ria Pinzon Dx/Rx/DC Orders Clinical Impression: Flank pain Instructions: ED Flank Pain, Uncertain Cause Prescriptions: No Action pravastatin 80 MG tablet 80 mg PO QHS RF: 0 gabapentin 300 MG capsule 300 mg PO QHS RF: 0 omeprazole 20 MG capsule,delayed release(DR/EC) 20 mg PO DAILY RF: 0 lisinopril 5 MG tablet 5 mg PO DAILY RF: 0 finasteride 5 MG tablet 5 mg PO DAILY RF: 0 multivitamin 1 EACH tablet 1 ea PO DAILY RF: 0 glimepiride 1 MG tablet 1 tab PO DAILY RF: 0 cholecalciferol (vitamin D3) 1,000 UNIT tablet 1,000 unit PO DAILY RF: 0 coenzyme [id number] 1 EACH capsule 1 ea PO DAILY RF: 0 tamsulosin 0.4 mg capsule 4 mg PO DAILY RF: 0 Primary Care Provider: Xavier Rodriguez Referrals: Xavier Rodriguez MD [Primary Care Provider] - 1 Week if not improving Disposition Disposition: Home, Self Care
[2021-03-19 04:01] LABS: Bacteria 0 SEEN /hpf (None Seen); Mucous, Urine 0 SEEN /hpf (<or=2+); Red Blood Cells-Urine 0 SEEN /hpf (0-5); Squamous Epithelial Cells - UA 0 SEEN /hpf (0-5); White Blood Cells 0 SEEN /hpf (0-5)
[2021-03-19 04:13] LABS: Color, Urine Yellow (Yellow); Glucose, Dipstick Normal (Normal); Ketone-Dipstick Negative (Negative); Leukocyte Esterase-Dipstick Negative /ul (Negative); Nitrite-Dipstick Negative (Negative); Occult Blood-Urine Negative /ul (Negative); Protein-Dipstick Negative (Negative); Urine Bilirubin Dipstick Negative (Negative); Urine Clarity Clear (Clear); Urine Urobilinogen Normal (Normal)
--- NOTE | 2021-03-19 05:07 | ED.RN ---
GIVEN TUBE BACITRACIN FOR HOME
[2021-03-19 05:08] VITALS: BP 132/79; PULSE 81; RESP 16; O2SAT 99
== END 2021-03-19 05:09 | disposition home or self-care (01) ==
PROVIDERS: Emergency Provider Emergency Medicine; PCP Internal Medicine; Visit Provider Emergency Medicine
DX: R10.32 Left lower quadrant pain (principal); E11.9 Type 2 diabetes mellitus without complications; N40.0 Benign prostatic hyperplasia without lower urinary tract symptoms; I10 Essential (primary) hypertension; Z87.442 Personal history of urinary calculi; Z87.891 Personal history of nicotine dependence; Z79.899 Other long term (current) drug therapy; Z79.84 Long term (current) use of oral hypoglycemic drugs
CPT/HCPCS: 74176; 80048; 81001; 85025; 99283; A4216

== ENCOUNTER 2021-05-22 09:03 | Emergency (ER) | payer MEDICARE, OTHER, SELFPAY ==
[2021-05-22 09:04] VITALS: BP 118/65; PULSE 88; RESP 14; TEMP 36.2; O2SAT 95; BMI 26.9
--- NOTE | 2021-05-22 09:18 | EX.ED.DYSGE1 ---
HPI History of Present Illness Chief Complaint: GI Bleed Narrative Narrative: Patient presents with dark stools. He is not on iron, no new medications or foods that he knows of. This is been ongoing for 2 days. He is not taking any NSAIDs he does not drink alcohol. He is otherwise asymptomatic he has no abdominal pain, he has no lightheadedness or weakness or fatigue or shortness of breath. [facility] Medical History Benign prostatic hypertrophy Cholecystitis, acute with cholelithiasis Dehydration Hypertension Syncope Type 2 diabetes mellitus Home Medications cholecalciferol (vitamin D3) 1,000 unit PO DAILY 01/17/16 [History Last Taken 01/17/16] coenzyme [id number] E 1 ea PO DAILY 01/17/16 [History Last Taken 01/17/16] finasteride 5 mg PO DAILY 01/17/16 [History Last Taken 01/16/16] gabapentin 300 mg PO QHS 01/17/16 [History Last Taken 01/16/16] glimepiride 1 tab PO DAILY 01/17/16 [History Last Taken 01/16/16] lisinopril 5 mg PO DAILY 01/17/16 [History Last Taken 01/17/16] multivitamin 1 ea PO DAILY 01/17/16 [History Last Taken 01/17/16] omeprazole 20 mg PO DAILY 01/17/16 [History Last Taken 01/16/16] pravastatin 80 mg PO QHS 01/17/16 [History Last Taken 01/16/16] tamsulosin 4 mg PO DAILY 03/19/21 [History Last Taken Unknown] Allergy/AdvReac Type Severity Reaction Status Date / Time erythromycin base Allergy Other Verified 05/22/21 09:05 Surgical History S/P laparoscopic cholecystectomy (~02/19/18) Social History Smoking Status: Former smoker ROS ROS ED ROS Narrative Past medical history: Reviewed Medications: Reviewed Social history: Noncontributory Review of systems: All systems negative except as indicated General: No fever Eyes: No visual changes ENT: No upper airway congestion, normal voice Neck: No neck pain Cardiovascular: No chest pain Respiratory: No shortness of breath or cough Gastrointestinal: No abdominal pain, nausea vomiting or diarrhea. Dark stools as in HPI Genitourinary: No dysuria Musculoskeletal: Denies myalgias no difficulty with ambulation Skin: No rash Neurological: No memory loss, confusion or any focal weakness Psych: No recent behavioral changes Hematologic: No easy bleeding or easy bruising, he is not anticoagulated EXAM Physical Exam Narrative Exam Narrative: Physical exam General: Well nourished, Well developed, No Acute Distress Head: Normocephalic, Atraumatic Eyes: Conjunctiva not pale ENT: Moist mucous membranes Neck: Supple, Nontender, No lymphadenopathy Cardiovascular: Regular rate, Regular rhythm Respiratory: No distress, CTA bilaterally Abdomen: Soft, Nontender, Nondistended Rectal: Normal external exam. He does have dark almost black stool on digital exam. Back: Nontender, Normal Inspection. Negative for: CVA tenderness Extremities: Nontender, No edema Skin: Normal color, No rash Neurological: Alert, Normal Strength, Normal Sensation Psychological: Normal affect Const Vital Signs: 05/22/21 09:04 Temperature 97.1 F L Temperature Source Temporal Pulse Rate 88 Respiratory Rate 14 Blood Pressure 118/65 Blood Pressure Mean 82 Pulse Ox 95 Oxygen Delivery Method Room Air MDM MDM MDM Narrative Medical decision making narrative: Patient has a normal work-up, his the dark stool I obtained tested negative on the guaiac test. He is asymptomatic. He may need a GI follow-up but he does not need admission at this time. I encouraged him to follow-up with GI especially for colonoscopy. Lab Data Labs: Laboratory Results - last 24 hr 05/22/21 05/22/21 09:30 09:30 WBC 3.1 L RBC 3.75 L Hgb 12.0 L Hct 34.1 L MCV 90.9 MCH 32.0 MCHC 35.2 RDW Std Deviation 41.1 RDW Coeff of Zane 12.2 Plt Count 222 MPV 9.5 Immature Gran % (Auto) 0.300 Neut % (Auto) 61.8 Lymph % (Auto) 21.6 Coal % (Auto) 14.4 H Eos % (Auto) 1.6 Baso % (Auto) 0.3 Absolute Neuts (auto) 1.9 L Absolute Lymphs (auto) 0.66 L Nucleated RBC % 0 Sodium 132 L Potassium 4.2 Chloride 99 Carbon Dioxide 27.0 Anion Gap 6 BUN 30 H Creatinine 1.67 H Estim Creat Clear Calc 30.79 Est GFR (MDRD) Af Amer 51 L Est GFR (MDRD) Non-Af 42 L BUN/Creatinine Ratio 18.0 Glucose 274 H Calcium 9.6 Total Bilirubin 0.60 AST 31 ALT 54 Alkaline Phosphatase 107 Total Protein 6.0 L Albumin 3.0 L Globulin 3.0 Albumin/Globulin Ratio 1.0 Discharge Plan Triage Chief Complaint: GI Bleed ED Provider: Cale Schulte Dx/Rx/DC Orders Clinical Impression: Dark stools Prescriptions: No Action pravastatin 80 MG tablet 80 mg PO QHS RF: 0 gabapentin 300 MG capsule 300 mg PO QHS RF: 0 omeprazole 20 MG capsule,delayed release(DR/EC) 20 mg PO DAILY RF: 0 lisinopril 5 MG tablet 5 mg PO DAILY RF: 0 finasteride 5 MG tablet 5 mg PO DAILY RF: 0 multivitamin 1 EACH tablet 1 ea PO DAILY RF: 0 glimepiride 1 MG tablet 1 tab PO DAILY RF: 0 cholecalciferol (vitamin D3) 1,000 UNIT tablet 1,000 unit PO DAILY RF: 0 coenzyme [id number] 1 EACH capsule 1 ea PO DAILY RF: 0 tamsulosin 0.4 mg capsule 4 mg PO DAILY RF: 0 Primary Care Provider: Xavier Rodriguez Referrals: Xavier Rodriguez MD [Primary Care Provider] - Monico Dixon DO [STAFF PHYSICIAN] - Activity Restrictions/Additional Instructions: There is no evidence of bleeding at this time however follow-up with gastroenterology for colonoscopy. Disposition Disposition: Home, Self Care
[2021-05-22 09:42] LABS: Absolute Lymphocyte Count 0.66 X10^3/uL (0.83-4.51); Absolute Neutrophil Count 1.9 X10^3/uL (2.0-7.7); Basophil# 0.01 X10^3/uL; Basophil% 0.3 % (0-1); Eosinophil# 0.05 X10^3/uL; Eosinophils% 1.6 % (0-5); Hematocrit 34.1 % (40-54); Lymphocyte # 0.66 X10^3/ul (0.83-4.51); Lymphocyte % 21.6 % (19-41); Mean Corp Hgb Conc 35.2 g/dL (32-36); Mean Corpuscular Volume 90.9 fL (80-94); Mean Platelet Vol. 9.5 fl (6.2-12.0); Monocyte# 0.44 X10^3/uL; Monocyte% 14.4 % (0-10); NRBC Flagged by Analyzer 0 % (0-5); Neutrophil # 1.89 X10^3/uL (2.7-7.7); Neutrophil % 61.8 % (47-70); Platelet Count 222 K/mm3 (150-450); RBC Distribution Width CV 12.2 % (11.6-14.6); RBC Distribution Width SD 41.1 fl (35.1-43.9); Red Blood Count 3.75 M/mm3 (4.6-6.2); White Blood Count 3.1 K/mm3 (4.4-11.0)
[2021-05-22 09:58] LABS: AST(SGOT) 31 U/L (15-37); Alanine Aminotransfer ALT/SGPT 54 U/L (16-61); Alkaline Phosphatase 107 U/L (45-117); Anion Gap 6 (5-15); BUN 30 mg/dL (7-18); Calcium,Total 9.6 mg/dL (8.5-10.1); Chloride 99 mmol/L (98-107); Creatinine, Serum 1.67 mg/dL (0.70-1.30); EST Glomerular Filtration Rate 42 mL/min (>60); Est Glom Filt Rate - Afr Amer 51 mL/min (>60); Estimated Creatinine Clearance 30.79 ml/min; Glucose 274 mg/dL (74-106); Potassium 4.2 mmol/L (3.5-5.1); Sodium Level 132 mmol/L (136-145)
[2021-05-22 11:02] VITALS: BP 127/84; PULSE 78; RESP 16; O2SAT 98
== END 2021-05-22 11:04 | disposition home or self-care (01) ==
PROVIDERS: Emergency Provider Emergency Medicine; PCP Internal Medicine; Visit Provider Emergency Medicine
DX: K92.2 Gastrointestinal hemorrhage, unspecified (principal); Z87.891 Personal history of nicotine dependence
CPT/HCPCS: 80053; 82274; 85025; 86850; 86900; 86901; 99283; A4216

== ENCOUNTER → 2021-07-18 | Outpatient (CLI) | payer MEDICARE, OTHER, SELFPAY ==
--- NOTE | 2021-07-18 16:19 | RAD_ITS ---
INDICATION: BACK PAIN EXAMINATION/TECHNIQUE: X-RAY - XR Spine Lumbar Min 4 Views COMPARISON: None. FINDINGS: VERTEBRAE: Preserved vertebral body height. Bilateral pars defects at L5-S1. Grade 2 anterolisthesis L5 on S1. Preservation of the normal lumbar lordosis. Severe multilevel facet arthropathy. DISCS: Severe multilevel degenerative disc disease and spondylosis. INCLUDED ABDOMEN: Included bowel gas pattern is non-obstructive. RAD/L/S Spine Min 4 Views IMPRESSION: Bilateral pars defects at L5-S1 with grade 2 anterolisthesis L5 on S1. Severe multilevel degenerative disc disease and spondylosis. Electronically Signed: Clayton Jorgensen MD at 21:06 EDT ,
== END | disposition home or self-care (01) ==
LOC: MTRAD 16:18
PROVIDERS: PCP Internal Medicine; Referring Provider Nurse Practitioner Family; Visit Provider Nurse Practitioner Family
DX: M54.9 Dorsalgia, unspecified (principal)
CPT/HCPCS: 72110

== ENCOUNTER 2021-10-02 06:18 | Day surgery (SDC) | payer MEDICARE, OTHER, SELFPAY ==
[2021-10-02 06:52] VITALS: BP 135/65; PULSE 82; RESP 16; TEMP 36.6; O2SAT 95; BMI 26.2
[2021-10-02 07:20] LABS: Bedside Glucose 150 mg/dL (74-106)
[2021-10-02] MEDS: MethylPREDNISolone Acetate 80 MG/ML Vial (08:00)
--- NOTE | 2021-10-02 08:00 | RAD_ITS ---
STUDY: X-RAY - LEFT KNEE REASON FOR EXAM: Male, 86 years old. GENICULAR NERVE STEROID BLOCK -- .65 MGY -- 7.7 SEC -- 3 IMG TECHNIQUE: 3 view(s) of the knee. COMPARISON: None. FINDINGS: Intraoperative imaging provided for a genicular nerve steroid block. RAD/Knee 3 Views IMPRESSION: Intraoperative imaging provided for a genicular nerve steroid block. Electronically Signed: Abraham Turner MD at 13:11 EDT ,
[2021-10-02] MEDS: Lidocaine 1% (5 ml sdv) 5 ML Vial (08:01)
[2021-10-02] MEDS: Bupivacaine 0.25% 30 ML Vial (08:01)
--- NOTE | 2021-10-02 09:42 | PCM.OPRPT ---
Report of Operation Date of Procedure: 10/02/21 Description of Surgical Findings:: PREOPERATIVE DIAGNOSIS: Osteoarthritis of the left knee POSTOPERATIVE DIAGNOSIS: Osteoarthritis of the left knee PROCEDURE PERFORMED: Left knee superomedial, superolateral, and inferomedial genicular nerves steroid injection under fluoroscopy guidance. ANESTHESIA: Local. BLOOD LOSS: Minimal. COMPLICATIONS: None. DESCRIPTION OF PROCEDURE: History and physical of today was reviewed. Risks and benefits of the procedure were explained. The patient understood and agreed to proceed. Informed consent was obtained. IV inserted per routine protocol. The patient was taken to the operating room and placed in the supine position. The left knee was prepped and draped in a sterile fashion using iodine x3. Under fluoroscopy guidance on AP view, the left knee was visualized. The skin and subcutaneous tissue was anesthetized with approximately 5 mL of 1% lidocaine using a 25-gauge regular needle at the vicinity of the superomedial, superolateral, and inferomedial genicular nerves. Under direct visualization of fluoroscopy on AP view as well as lateral view, starting on the left superomedial, ending on the left inferomedial, passing through the left superolateral genicular nerves, the needle was passed through the skin. The tip of the needle was maneuvered and directed towards the diaphyseal junction of each corresponding nerve. Once tip of the needle was in the vicinity of the diaphysis and in contact with the bone, after confirmation on AP as well as lateral view and repeated negative aspiration for blood, a total of 12 mL of preservative-free 0.25% Marcaine with 80 mg of Depo-Medrol was injected in divided doses between those three levels. The needles were then removed intact. The patient experienced no sign or symptoms of intravascular injection. The patient experienced no paresthesia. The procedure was completed without any apparent difficulty or any complications. The patient appeared to tolerate it well. ASSESSMENT AND PLAN: This is an 86-year-old male with osteoarthritis of the left knee status post left knee superior medial, superior lateral, inferior medial genicular nerves steroid injection under fluoroscopic guidance, patient will continue his current medications, patient will follow in approximately 2 weeks for reevaluation.
== END 2021-10-02 08:39 | disposition home or self-care (01) ==
LOC: SDC 06:19 → AC 06:20
PROVIDERS: PCP Internal Medicine; Referring Provider Anesthesiology Pain Medicine; Visit Provider Anesthesiology Pain Medicine
PROC: 3E0U3GC Introduction of Other Therapeutic Substance into Joints, Percutaneous Approach (ICD-10-PCS; CPT 20610; principal; 2021-10-02 07:55)
DX: M17.12 Unilateral primary osteoarthritis, left knee (principal); E11.9 Type 2 diabetes mellitus without complications; I10 Essential (primary) hypertension; N40.0 Benign prostatic hyperplasia without lower urinary tract symptoms; K21.9 Gastro-esophageal reflux disease without esophagitis; Z79.84 Long term (current) use of oral hypoglycemic drugs; Z79.899 Other long term (current) drug therapy
CPT/HCPCS: 64454; 73562; 77002; 82962; J7120; J2405

== ENCOUNTER → 2021-11-06 | Outpatient (CLI) | payer MEDICARE, OTHER, SELFPAY ==
--- NOTE | 2021-11-06 13:30 | CT_ITS ---
STUDY: CT MAXILLOFACIAL SINUSES REASON FOR EXAM: Male, 86 years old. SINUSITIS RADIATION DOSAGE (If Supplied By Facility): CTDIvol = ( 28.14 ) mGy, DLP = ( 756.74 ) mGycm TECHNIQUE: The patient was scanned in a multi detector CT scanner. High resolution axial imaging was performed without the administration of intravenous contrast material. Sagittal and coronal images were reconstructed. Individualized dose optimization techniques were used for this CT. COMPARISON: None. FINDINGS: FRONTAL SINUSES: Normal aeration, without mucosal inflammatory disease. ETHMOIDAL SINUSES: Normal aeration, without mucosal inflammatory disease. MAXILLARY SINUSES: Mild mucosal thickening at the base of the right maxillary sinus. Prior resection of the superior medial decker of both maxillary sinuses. SPHENOIDAL SINUSES: Normal aeration, without mucosal inflammatory disease. There is patency of the bilateral maxillary infundibuli with normal uncinate processes, ethmoid bullae, and hiatus semilunaris. Normal bilateral middle turbinates. Normal bilateral inferior turbinates. Normal midline nasal septum. There is patency of the bilateral nasal airways. The visualized osseous structures are normal. The visualized bilateral orbital contents are normal. Small benign-appearing submental lymph nodes. CT/Sinus/Facial Bone IMPRESSION: Mild degree of mucosal thickening at the base of the right maxillary sinus. Electronically Signed: Abraham Turner MD at 15:06 EDT ,
== END | disposition home or self-care (01) ==
LOC: CT 13:14
PROVIDERS: PCP Internal Medicine; Referring Provider Otolaryngology; Visit Provider Otolaryngology
DX: J32.9 Chronic sinusitis, unspecified (principal)
CPT/HCPCS: 70486